=== PATIENT | male | born 1945 | race Caucasian/White ===

== ENCOUNTER 2021-01-14 12:59 | Outpatient (RCR) | payer MEDICARE, OTHER, SELFPAY | END 2021-02-12 23:59 | disposition home or self-care (01) | LOC: SOT 12:59 | PROVIDERS: Family Provider Family Medicine; PCP Family Medicine; Referring Provider Orthopaedic Surgery; Visit Provider Orthopaedic Surgery | DX: Z47.89 Encounter for other orthopedic aftercare (principal) | CPT/HCPCS: 97035; 97110; 97140; 97167 ==

== ENCOUNTER 2021-02-13 06:00 | Outpatient (RCR) | payer MEDICARE, OTHER, SELFPAY | END 2021-03-15 23:59 | disposition home or self-care (01) | LOC: SOT 06:00 | PROVIDERS: Family Provider Family Medicine; PCP Family Medicine; Referring Provider Orthopaedic Surgery; Visit Provider Orthopaedic Surgery | DX: Z47.89 Encounter for other orthopedic aftercare (principal) | CPT/HCPCS: 97110 ==